=== PATIENT | male | born 1950 | race Caucasian/White ===

== ENCOUNTER 2022-08-17 20:56 | Inpatient (IN) ==
[2022-08-18] MEDS ORDERED: Acetaminophen 325 MG TABLET PO PRN (00:17)
[2022-08-18] MEDS ORDERED: Naloxone 0.4 MG/ML INJ IVP PRN (00:17)
[2022-08-18] MEDS ORDERED: Ondansetron 4 MG/2 ML VIAL IVP PRN (00:17)
[2022-08-18] MEDS ORDERED: D5% in Water 1,000 ML IVC PRN (00:24)
[2022-08-18] MEDS ORDERED: *HR* Dextrose 50 % in Water (Syg) 50 ML SYRINGE IVP PRN (00:24)
[2022-08-18] MEDS ORDERED: Dextrose Gel 15 GM/37.5 ML TUBE PO PRN ×2 (00:24)
[2022-08-18 01:59] LABS: % Iron Saturation 78 % (20-55); Iron 134 mcg/dL (65-175); Transferrin 122 mg/dL (203-362)
[2022-08-18 02:00] LABS: BUN/Creatinine Ratio 21 (6-26); Blood Urea Nitrogen 16 mg/dL (8-23); Calcium 7.8 mg/dL (8.6-10.3); Carbon Dioxide 32 mEq/L (23-29); Chloride 88 mEq/L (98-107); Glucose 94 mg/dL (70-105); Magnesium 1.5 mg/dL (1.6-2.6); Osmolality,Calculated 279 (280-300); Phosphorous 3.7 mg/dL (2.7-4.5); Potassium 2.6 mEq/L (3.5-5.1); Sodium 134 mEq/L (136-145)
[2022-08-18 02:03] LABS: Basophils % 0.1 %; Eosinophils % 0.1 %; Hematocrit 30.7 % (37.5-50.1); Hemoglobin 10.7 g/dL (12.9-16.9); Immature Granulocytes % 0.5 % (0-4); Lymphocytes # 0.8 K/mcL (0.6-4.6); Lymphocytes % 10.1 %; Mean Corpuscular HGB Conc 34.9 g/dL (31.6-35.5); Mean Corpuscular Hemoglobin 34.4 pg (28.0-33.3); Mean Corpuscular Volume 98.7 fL (83.0-100.0); Mean Platelet Volume 11.2 fL (9.4-12.4); Monocytes # 0.3 K/mcL (0.0-1.3); Monocytes % 4.2 %; Neutrophils # 6.5 K/mcL (1.6-8.9); Platelet Count 215 K/mcL (140-400); Red Blood Count 3.11 M/mcL (4.19-5.50); White Blood Count 7.7 K/mcL (4.3-11.1)
[2022-08-18 02:13] LABS: INR 1.1; Prothrombin Time 11.8 Seconds (9.4-12.1)
[2022-08-18 02:15] LABS: Thyroid Stimulating Hormone 6.121 mcIU/mL (0.340-5.600)
[2022-08-18 02:18] LABS: Ferritin 816 ng/mL (20-250)
[2022-08-18 02:24] LABS: Procalcitonin 0.62 ng/mL (0.00-0.15)
[2022-08-18 02:55] LABS: Folate 3.5 ng/mL (3.0-16.0)
[2022-08-18] MEDS ORDERED: *HR* LORazepam 2 MG/ML VIAL IVP PRN (04:00)
[2022-08-18] MEDS: cefTRIAXone 1,000 MG in 0.9 % Sodium Chloride Mini Bag 100 ML IVPB SCH (07:45)
[2022-08-18] MEDS: Folic Acid 1 MG TABLET PO SCH ×2 (07:46→08:22)
[2022-08-18] MEDS: MetroNIDAZOLE 500 MG/100 ML 500 MG/100 ML BAG IVPB SCH ×3 (07:46→23:33)
[2022-08-18] MEDS: Vitamin B Complex/Vit C/Vit E 1 EACH TABLET PO SCH ×2 (07:47→08:23)
[2022-08-18] MEDS: Thiamine (B-1) 100 MG TABLET PO SCH ×2 (07:49→08:23)
[2022-08-18 12:02] LABS: Potassium 3.4 mEq/L (3.5-5.1)
[2022-08-18 12:12] LABS: BUN/Creatinine Ratio 21 (6-26); Blood Urea Nitrogen 15 mg/dL (8-23); Calcium 7.8 mg/dL (8.6-10.3); Carbon Dioxide 30 mEq/L (23-29); Chloride 90 mEq/L (98-107); Glucose 93 mg/dL (70-105); Osmolality,Calculated 275 (280-300); Sodium 132 mEq/L (136-145)
[2022-08-18] MEDS ORDERED: E-Z-PAQUE (BARIUM SULF) SUSP 1 BOTTLE PO ONE (13:05)
[2022-08-18] MEDS ORDERED: E-Z-HD (BARIUM SULF) SUSPENSION PO ONE (13:05)
[2022-08-19 01:20] LABS: Basophils % 0.2 %; Eosinophils % 0.7 %; Hematocrit 25.4 % (37.5-50.1); Immature Granulocytes % 0.4 % (0-4); Lymphocytes # 1.1 K/mcL (0.6-4.6); Lymphocytes % 19.8 %; Mean Corpuscular Hemoglobin 34.9 pg (28.0-33.3); Mean Corpuscular Volume 99.6 fL (83.0-100.0); Mean Platelet Volume 11.1 fL (9.4-12.4); Monocytes # 0.3 K/mcL (0.0-1.3); Monocytes % 5.4 %; Neutrophils # 4.2 K/mcL (1.6-8.9); Platelet Count 159 K/mcL (140-400); Red Blood Count 2.55 M/mcL (4.19-5.50); Segmented Neutrophils % 73.5 %; White Blood Count 5.7 K/mcL (4.3-11.1)
[2022-08-19 01:21] LABS: Hemoglobin 8.9 g/dL (12.9-16.9)
[2022-08-19 01:40] LABS: BUN/Creatinine Ratio 20 (6-26); Blood Urea Nitrogen 14 mg/dL (8-23); Calcium 7.8 mg/dL (8.6-10.3); Carbon Dioxide 32 mEq/L (23-29); Chloride 92 mEq/L (98-107); Glucose 84 mg/dL (70-105); Magnesium 2.1 mg/dL (1.6-2.6); Osmolality,Calculated 278 (280-300); Phosphorous 2.9 mg/dL (2.7-4.5); Sodium 134 mEq/L (136-145)
[2022-08-19] MEDS: Levothyroxine 25 MCG TABLET PO SCH (05:25)
[2022-08-19] MEDS: cefTRIAXone 1,000 MG in 0.9 % Sodium Chloride Mini Bag 100 ML IVPB SCH (09:45)
[2022-08-19] MEDS: Vitamin B Complex/Vit C/Vit E 1 EACH TABLET PO SCH (09:54)
[2022-08-19] MEDS: Thiamine (B-1) 100 MG TABLET PO SCH (09:54)
[2022-08-19] MEDS: MetroNIDAZOLE 500 MG/100 ML 500 MG/100 ML BAG IVPB SCH ×3 (10:44→23:57)
[2022-08-19] MEDS: Ipratropium/Albuterol Neb 3 ML IH SCH ×3 (11:08→19:53)
[2022-08-19 14:10] LABS: Hematocrit 27.2 % (37.5-50.1); Hemoglobin 9.4 g/dL (12.9-16.9); Mean Corpuscular HGB Conc 34.6 g/dL (31.6-35.5); Mean Corpuscular Hemoglobin 34.6 pg (28.0-33.3); Mean Platelet Volume 11.1 fL (9.4-12.4); Platelet Count 165 K/mcL (140-400); Red Blood Count 2.72 M/mcL (4.19-5.50); Red Cell Distribution Width 13.2 % (11.5-14.5); White Blood Count 6.9 K/mcL (4.3-11.1)
[2022-08-19] MEDS: Nicotine 14 MG PATCH.TD24 TD SCH (14:38)
[2022-08-19] MEDS: *HR* LORazepam 2 MG/ML VIAL IVP PRN (23:58)
[2022-08-20] MEDS: Ipratropium/Albuterol Neb 3 ML IH SCH ×4 (04:07→22:42)
[2022-08-20 04:40] LABS: Basophils % 0.4 %; Eosinophils % 0.4 %; Hematocrit 25.5 % (37.5-50.1); Hemoglobin 8.7 g/dL (12.9-16.9); Immature Granulocytes % 0.6 % (0-4); Lymphocytes # 1.1 K/mcL (0.6-4.6); Lymphocytes % 20.1 %; Mean Corpuscular HGB Conc 34.1 g/dL (31.6-35.5); Mean Corpuscular Hemoglobin 34.1 pg (28.0-33.3); Mean Platelet Volume 10.9 fL (9.4-12.4); Monocytes # 0.4 K/mcL (0.0-1.3); Monocytes % 7.1 %; Neutrophils # 3.7 K/mcL (1.6-8.9); Platelet Count 153 K/mcL (140-400); Red Blood Count 2.55 M/mcL (4.19-5.50); Red Cell Distribution Width 13.1 % (11.5-14.5); Segmented Neutrophils % 71.4 %; White Blood Count 5.2 K/mcL (4.3-11.1)
[2022-08-20 05:02] LABS: Alanine Aminotransferase 12 Units/L (7-52); Albumin 2.5 g/dL (3.5-5.7); Albumin/Globulin Ratio 1.1 (1.1-2.2); Alkaline Phosphatase 59 Units/L (34-104); Aspartate Amino Transferase 25 Units/L (13-39); BUN/Creatinine Ratio 16 (6-26); Bilirubin,Total 0.8 mg/dL (0.3-1.0); Blood Urea Nitrogen 12 mg/dL (8-23); Carbon Dioxide 32 mEq/L (23-29); Chloride 97 mEq/L (98-107); Globulin 2.2 g/dL (2.4-3.5); Glucose 83 mg/dL (70-105); Osmolality,Calculated 283 (280-300); Sodium 137 mEq/L (136-145); Total Protein 4.7 g/dL (6.4-8.9)
[2022-08-20] MEDS: Levothyroxine 25 MCG TABLET PO SCH (05:11)
[2022-08-20 05:14] LABS: Triiodothyronine (T3) Free 2.75 pg/mL (2.50-3.90)
[2022-08-20] MEDS: MetroNIDAZOLE 500 MG/100 ML 500 MG/100 ML BAG IVPB SCH ×3 (09:15→23:45)
[2022-08-20] MEDS: Thiamine (B-1) 100 MG TABLET PO SCH (09:16)
[2022-08-20] MEDS: cefTRIAXone 1,000 MG in 0.9 % Sodium Chloride Mini Bag 100 ML IVPB SCH (09:16)
[2022-08-20] MEDS: Vitamin B Complex/Vit C/Vit E 1 EACH TABLET PO SCH (09:16)
[2022-08-20] MEDS: Nicotine 14 MG PATCH.TD24 TD SCH (09:17)
[2022-08-20] MEDS: Metoprolol XL (24 HR) Succ 25 MG TAB.ER.24H PO SCH (12:04)
[2022-08-20] MEDS: *HR* LORazepam 2 MG/ML VIAL IVP PRN (21:00)
[2022-08-21 04:40] LABS: Basophils % 0.4 %; Eosinophils # 0.1 K/mcL (0.0-0.6); Eosinophils % 0.7 %; Hematocrit 27.5 % (37.5-50.1); Hemoglobin 9.5 g/dL (12.9-16.9); Immature Granulocytes % 0.6 % (0-4); Lymphocytes % 14.5 %; Mean Corpuscular HGB Conc 34.5 g/dL (31.6-35.5); Mean Corpuscular Hemoglobin 35.1 pg (28.0-33.3); Mean Corpuscular Volume 101.5 fL (83.0-100.0); Mean Platelet Volume 10.9 fL (9.4-12.4); Monocytes # 0.4 K/mcL (0.0-1.3); Monocytes % 5.8 %; Neutrophils # 5.4 K/mcL (1.6-8.9); Platelet Count 175 K/mcL (140-400); Red Blood Count 2.71 M/mcL (4.19-5.50); Red Cell Distribution Width 13.1 % (11.5-14.5); White Blood Count 6.9 K/mcL (4.3-11.1)
[2022-08-21] MEDS: Ipratropium/Albuterol Neb 3 ML IH SCH ×4 (04:40→21:52)
[2022-08-21 07:57] VITALS: BP 104/73; PULSE 103; TEMP 98; O2SAT 92
[2022-08-21] MEDS: Metoprolol XL (24 HR) Succ 25 MG TAB.ER.24H PO SCH (07:57)
[2022-08-21] MEDS: Levothyroxine 25 MCG TABLET PO SCH ×2 (07:57→20:02)
[2022-08-21] MEDS: Vitamin B Complex/Vit C/Vit E 1 EACH TABLET PO SCH (07:57)
[2022-08-21] MEDS: cefTRIAXone 1,000 MG in 0.9 % Sodium Chloride Mini Bag 100 ML IVPB SCH (08:02)
[2022-08-21] MEDS: *HR* LORazepam 2 MG/ML VIAL IVP PRN ×3 (08:02→18:18)
[2022-08-21] MEDS: MetroNIDAZOLE 500 MG/100 ML 500 MG/100 ML BAG IVPB SCH (08:03)
[2022-08-21] MEDS: Thiamine (B-1) 100 MG TABLET PO SCH (08:04)
[2022-08-21] MEDS: Nicotine 14 MG PATCH.TD24 TD SCH (08:04)
[2022-08-21 11:34] LABS: ABG Base Excess 5 mEq/L (-2 to 3); ABG HCO3 28 mEq/L (21-27); ABG Oxygen Saturation 87 % (95-98); ABG PCO2 38 mmHg (35-45); ABG PH 7.49 pH Units (7.32-7.45); ABG PO2 48 mmHg (85-104); ABG TCO2 30 mEq/L (20-26)
[2022-08-21] MEDS ORDERED: Haloperidol Lactate 5 MG/ML VIAL IVP PRN (15:06)
[2022-08-22] MEDS: *HR* LORazepam 2 MG/ML VIAL IVP PRN ×2 (00:05→09:30)
[2022-08-22] MEDS: Ipratropium/Albuterol Neb 3 ML IH SCH ×2 (03:52→10:49)
[2022-08-22] MEDS: Nicotine 14 MG PATCH.TD24 TD SCH (09:45)
[2022-08-22] MEDS: Thiamine (B-1) 100 MG TABLET PO SCH (09:46)
[2022-08-22] MEDS: Metoprolol XL (24 HR) Succ 25 MG TAB.ER.24H PO SCH (09:46)
[2022-08-22] MEDS ORDERED: Nicotine 21 MG PATCH.TD24 TD SCH (10:45)
== END 2022-08-22 13:34 | DRG 871 ==
LOC: 2NENU → SUATTDRO 23:53 → 2ANU 08-21 16:10
PROVIDERS: ADMIT Internal Medicine; ATTEND Internal Medicine

== ENCOUNTER 2022-08-22 13:05 | Inpatient (IN) ==
[2022-08-22] MEDS ORDERED: Ondansetron 4 MG/2 ML VIAL IVP PRN (13:57)
[2022-08-22] MEDS ORDERED: Bisacodyl 10 MG RECTAL SUPPOSITORY RC PRN (13:57)
[2022-08-22] MEDS ORDERED: Saliva Stimulant 44.3ml BOTTLE PO PRN (14:02)
[2022-08-22] MEDS: *HR* LORazepam 2 MG/ML VIAL IVP PRN ×2 (14:18→19:08)
[2022-08-22] MEDS: Haloperidol Lactate 5 MG/ML VIAL IVP PRN ×2 (14:18→21:19)
[2022-08-22] MEDS: Atropine Sulfate 1% 40 DROP/2 ML BOTTLE SL PRN ×3 (14:35→21:30)
[2022-08-22] MEDS: Artificial Tears SOLN 15 ML BOTTLE BOTH EYES SCH (21:30)
[2022-08-23] MEDS: *HR* LORazepam 2 MG/ML VIAL IVP PRN ×3 (04:09→12:08)
[2022-08-23] MEDS: Haloperidol Lactate 5 MG/ML VIAL IVP PRN (06:42)
[2022-08-23] MEDS ORDERED: Scopolamine Patch 1.5 MG PATCH.TD72 TD SCH (09:45)
[2022-08-23] MEDS: Atropine Sulfate 1% 40 DROP/2 ML BOTTLE SL PRN ×6 (10:57→20:34)
[2022-08-23] MEDS: Morphine Sulfate 2 MG/ML SYRINGE IVP PRN ×5 (12:07→20:43)
[2022-08-23] MEDS ORDERED: Glycopyrrolate 0.2 MG/ML VIAL IVP PRN (13:59)
[2022-08-23] MEDS: Artificial Tears SOLN 15 ML BOTTLE BOTH EYES SCH (20:34)
[2022-08-24] MEDS: Atropine Sulfate 1% 40 DROP/2 ML BOTTLE SL PRN
[2022-08-24] MEDS: Morphine Sulfate 2 MG/ML SYRINGE IVP PRN ×7 (08:45→23:41)
[2022-08-24] MEDS: *HR* LORazepam 2 MG/ML VIAL IVP PRN ×6 (08:45→23:42)
[2022-08-24] MEDS ORDERED: Atropine Sulfate 1% 40 DROP/2 ML BOTTLE SL PRN (09:05)
[2022-08-24] MEDS: Artificial Tears SOLN 15 ML BOTTLE BOTH EYES SCH (20:32)
[2022-08-25 01:34] VITALS: BP 52/34; PULSE 129; TEMP 100.5; O2SAT 60
== END 2022-08-25 01:30 | disposition expired | DRG 951 ==
LOC: 2ANU 13:39
PROVIDERS: ADMIT Internal Medicine Hospice and Palliative Medicine; ATTEND Internal Medicine Hospice and Palliative Medicine